=== PATIENT | male | born 2000 | race Caucasian/White ===

== ENCOUNTER 2024-06-06 21:23 | Emergency (ER) | payer MEDICAID ==
[~2024-06-06] VITALS: Ht 182.9 cm; Wt 94.5 kg
[2024-06-06 21:28] VITALS: O2SAT 97
[2024-06-06 21:31] VITALS: BP 128/86; PULSE 96; RESP 16; TEMP 36.9; O2SAT 99
[2024-06-06] MEDS ORDERED: IBUP-2029 MT (23:10)
== END 2024-06-07 00:08 | disposition home or self-care (01) ==
LOC: ER 21:23
DX: S93.402A Sprain of unspecified ligament of left ankle, initial encounter (principal); X50.1XXA Overexertion from prolonged static or awkward postures, initial encounter; Y93.89 Activity, other specified; Y92.89 Other specified places as the place of occurrence of the external cause; Y99.8 Other external cause status
CPT/HCPCS: 73610; 99283

== ENCOUNTER 2024-08-09 16:25 | Emergency (ER) | payer SELFPAY ==
[~2024-08-09] VITALS: Ht 182.9 cm; Wt 99.7 kg
[~2024-08-09 16:25] MED LIST: IBUP-2029 MT
[2024-08-09 16:36] VITALS: TEMP 36.9; O2SAT 95
[2024-08-09] MEDS ORDERED: AMOX-494 MT (17:10)
[2024-08-09] MEDS ORDERED: BENZ1LOZ73 MT (17:14)
[2024-08-09 17:36] VITALS: BP 118/71; PULSE 78; RESP 16; O2SAT 100
== END 2024-08-09 17:34 | disposition home or self-care (01) ==
LOC: ER 16:25
DX: J02.9 Acute pharyngitis, unspecified (principal); Z79.899 Other long term (current) drug therapy
CPT/HCPCS: 99283

== ENCOUNTER 2024-09-24 04:09 | Emergency (ER) | payer MEDICAID ==
[~2024-09-24] VITALS: Ht 185.4 cm; Wt 102.8 kg
[~2024-09-24 04:09] MED LIST changes: +AMOX-494 MT; +BENZ1LOZ73 MT
[2024-09-24 04:15] VITALS: O2SAT 98
[2024-09-24] MEDS: VISCOUS LIDOCAINE 2% 15 ML UDC PO STA (05:12)
[2024-09-24] MEDS: ONDANSETRON 4MG ODT PO STA (05:12)
[2024-09-24] MEDS: MAGNESIUM/ALUMINUM HYDROXIDE/SIMETHICONE 30ML UDC PO STA (05:12)
[2024-09-24 05:25] LABS: BASOPHILS % 0.5 % (0.0-2.0); EOSINOPHILS % 2.1 % (0.0-5.0); HEMOGLOBIN. 14.9 g/dL (14.0-18.0); LYMPHOCYTES % 23.8 % (20.0-50.0); MEAN CORPUSCULAR HEMOGLOBIN 32.7 pg (28.0-32.0); MEAN CORPUSCULAR HGB CONC 34.5 g/dL (31.0-37.0); MEAN CORPUSCULAR VOLUME 94.8 fL (80.0-94.0); MEAN PLATELET VOLUME 8.9 fl (7.4-10.4); MONOCYTES % 8.1 % (2.0-8.0); NEUTROPHILS % 65.5 % (40.0-76.0); PLATELET 217 x1000/uL (130-400); RED BLOOD CELL COUNT 4.54 mill/uL (4.7-6.1); WHITE BLOOD COUNT 7.6 x1000/uL (4.5-11.0)
[2024-09-24 05:33] LABS: *AMPHETAMINES SCREEN URINE NEGATIVE (NEGATIVE); *BARBITURATES SCREEN URINE NEGATIVE (NEGATIVE); *BENZODIAZEPINES SCREEN URINE NEGATIVE (NEGATIVE); CHLORIDE 106 mEq/L (98-107); POTASSIUM 3.9 mEq/L (3.5-5.1); PROTHROMBIN TIME 10.6 sec (9.6-11.0); SODIUM 140 mEq/L (136-145)
[2024-09-24 05:34] LABS: *COCAINE SCREEN URINE NEGATIVE (NEGATIVE); CANNABINOID URINE SCREEN NEGATIVE (NEGATIVE); CARBON DIOXIDE 26 mEq/L (21-32); CLARITY URINE CLEAR (CLEAR); COLOR URINE YELLOW (YELLOW); ECSTASY MDMA SCREEN URINE NEGATIVE (NEGATIVE); GLUCOSE URINE NEGATIVE (NEGATIVE); KETONES URINE NEGATIVE (NEGATIVE); LEUKOCYTE ESTERASE URINE NEGATIVE (NEGATIVE); METHADONE URINE SCREEN NEGATIVE (NEGATIVE); NITRITE URINE NEGATIVE (NEGATIVE); OCCULT BLOOD URINE NEGATIVE (NEGATIVE); OPIATES URINE SCREEN NEGATIVE (NEGATIVE); PHENCYCLIDINE URINE SCREEN NEGATIVE (NEGATIVE); PROTEIN URINE NEGATIVE (NEGATIVE); SPECIFIC GRAVITY URINE 1.011 (1.005-1.030); UROBILINOGEN URINE 0.2 E.U./dL (0.2-1.0)
[2024-09-24 05:35] LABS: CALCIUM 10.1 mg/dL (8.7-10.4)
[2024-09-24] MEDS: FAMOTIDINE 20MG TABLET PO ONE (05:37)
[2024-09-24 05:40] LABS: ETHANOL BLOOD < 10 mg/dL (<10); GLUCOSE 106 mg/dL (70-105); UREA NITROGEN BLOOD 12 mg/dL (9-23)
[2024-09-24 05:41] LABS: ALANINE AMINOTRANSFERASE 16 IU/L (10-49); ASPARTATE AMINOTRANSFERASE 18 IU/L (<34)
[2024-09-24 05:42] LABS: BILIRUBIN DIRECT < 0.1 mg/dL (<=3.0); BILIRUBIN TOTAL 0.3 mg/dL (0.1-1.0); PROTEIN TOTAL 7.5 g/dL (6.0-8.3)
[2024-09-24] MEDS ORDERED: ONDA4TAB50 PO (05:47)
[2024-09-24 06:02] VITALS: BP 120/72; PULSE 75; RESP 20; TEMP 36.8; O2SAT 97
== END 2024-09-24 06:11 | disposition home or self-care (01) ==
LOC: ER 04:09
DX: K21.9 Gastro-esophageal reflux disease without esophagitis (principal); Z79.899 Other long term (current) drug therapy
CPT/HCPCS: 80076; 80305; 80048; 81003; 80320; 83690; 85025; 85610; 36415; 99284; Q0162; G0480

== ENCOUNTER 2024-10-04 04:17 | Emergency (ER) | payer MEDICAID ==
[~2024-10-04] VITALS: Ht 172.7 cm; Wt 91.0 kg
[~2024-10-04 04:17] MED LIST changes: +ONDA4TAB50 PO
[2024-10-04 04:21] VITALS: O2SAT 97
[2024-10-04] MEDS: ACETAMINOPHEN 325MG TABLET PO ONE (04:53)
[2024-10-04] MEDS: PANTOPRAZOLE 40MG DR TABLET PO ONE (04:53)
[2024-10-04] MEDS: MAGNESIUM/ALUMINUM HYDROXIDE/SIMETHICONE 30ML UDC PO STA (04:54)
[2024-10-04] MEDS: ONDANSETRON 4MG ODT PO STA (04:54)
[2024-10-04] MEDS: VISCOUS LIDOCAINE 2% 15 ML UDC PO STA (04:54)
[2024-10-04 05:22] VITALS: BP 117/72; PULSE 80; RESP 18; TEMP 36.8; O2SAT 98
[2024-10-04] MEDS ORDERED: PROT40 MT (05:29)
[2024-10-04] MEDS ORDERED: ACET-2708 MT (05:29)
== END 2024-10-04 05:54 | disposition home or self-care (01) ==
LOC: ER 04:17
DX: K21.9 Gastro-esophageal reflux disease without esophagitis (principal); R03.0 Elevated blood-pressure reading, without diagnosis of hypertension; Z79.899 Other long term (current) drug therapy
CPT/HCPCS: 99284; Q0162